=== PATIENT | male | born 1995 | race Caucasian/White ===

== ENCOUNTER 2019-05-26 08:48 | Emergency (ER) | payer BC ==
[2019-05-26] MEDS ORDERED: LIDOCAINE 1%/EPI (MDV) 50 ML INJ INJ (09:30)
[2019-05-26] MEDS: LIDOCAINE 1%/EPI 30 ML INJ INJ (09:35)
== END 2019-05-26 10:12 | disposition home or self-care (01) ==
LOC: FTE 08:48
DX: L05.01 Pilonidal cyst with abscess (principal)
CPT/HCPCS: 10080; 99283-25